=== PATIENT | male | born 1975 | race American Indian/Alaskan Native ===

== ENCOUNTER 2016-11-06 17:54 | Emergency (ER) | payer SELFPAY ==
--- NOTE | 2016-11-07 00:35 | Emergency Department Report ---
HPI - General Chief Complaint: Extremity Injury, Upper Time Seen by Provider: 11/06/16 23:50 - HPI HPI: 41-year-old male presents today with right middle finger pain since 20 minutes prior to arrival. Patient states that his finger got rolled up in a car window. He describes his pain as 8 out of 10 constant, throbbing pain. Positive for aches had on the fat pad. Denies numbness, weakness, paresthesias. Denies fever, chills, nausea, vomiting, chest pain, shortness of breath, abdominal pain. ED Past Medical Hx - Past Medical History Previous Medical History?: No - Surgical History Past Surgical History?: No - Social History Smoking Status: Never Smoker Substance Use Type: Non Opiate Pain - Medications Home Medications: Home Medications Medication Instructions Recorded Confirmed Last Taken Type HYDROcodone/APAP 7.5-325 [[place] 1 each PO Q8HR PRN #10 tablet 07/04/16 Unknown Rx 7.5-325 mg TAB] HYDROcodone/APAP 5-325 [[place] 1 each PO Q6HR PRN #12 tablet 07/12/16 Unknown Rx 5/325] HYDROcodone/APAP 5-325 [[place] 1 each PO Q6HR PRN #20 tablet 09/19/16 Unknown Rx 5/325] Ibuprofen [Motrin 600 MG tab] 600 mg PO Q8H PRN #20 tablet 09/19/16 Unknown Rx Naproxen [Naprosyn] 500 mg PO BID #30 tablet 11/07/16 Unknown Rx ED Review of Systems ROS: Stated complaint: FINGER LAC Other details as noted in HPI Constitutional: denies: chills, fever, malaise Eyes: denies: eye pain ENT: denies: ear pain, throat pain, congestion Respiratory: denies: cough, shortness of breath, wheezing Cardiovascular: denies: chest pain, palpitations Endocrine: no symptoms reported Gastrointestinal: denies: abdominal pain, nausea, vomiting Musculoskeletal: joint swelling, arthralgia Neurological: denies: headache, weakness, numbness, paresthesias Physical Exam - Physical Exam Vital Signs: Vital Signs 11/06/16 18:06 Temperature 99.1 F Pulse Rate 89 Respiratory 22 Rate Blood Pressure 140/95 O2 Sat by Pulse 100 Oximetry Physical Exam: GENERAL: The patient is well-developed and well-nourished. Patient is in NAD. HEAD: Normocephalic. Atraumatic. CHEST/LUNGS: Clear to auscultation throughout. HEART/CARDIOVASCULAR: Regular rate and rhythm. No murmurs, rubs or gallops. ABDOMEN: Abdomen is soft, nontender. Bowel sounds normoactive. No guarding or rebound tenderness. RIGHT HAND: A 1.5 cm superficial laceration noted above with the fat pad of the third digit; tenderness to palpation of the digit. Limited range of motion due to pain. Normal sensation. 2 point discrimination intact. Peripheral pulses intact. Capillary refill less than 2 seconds. NEURO: Alert and oriented x 3. Normal gait. ED Course Vital Signs 11/06/16 18:06 Temperature 99.1 F Pulse Rate 89 Respiratory 22 Rate Blood Pressure 140/95 O2 Sat by Pulse 100 Oximetry ED Medical Decision Making - Lab Data Vital Signs 11/06/16 18:06 Temperature 99.1 F Pulse Rate 89 Respiratory 22 Rate Blood Pressure 140/95 O2 Sat by Pulse 100 Oximetry - Radiology Data Radiology results: report reviewed Right hand x-ray: No fracture or dislocation noted. - Medical Decision Making 41-year-old male presents today with right middle finger pain and laceration post a car window rolling up on his finger. His x-ray results reveal no fracture or dislocation. Patient is in no acute distress at this time. He will be discharged home and is encouraged to follow up with a primary care provider. He will be sent home on naproxen and is encouraged to return to the emergency room for any worsening symptoms. Critical care attestation.: If time is entered above; I have spent that time in minutes in the direct care of this critically ill patient, excluding procedure time. ED Disposition Clinical Impression: Finger contusion Qualifiers: Encounter type: initial encounter Finger: middle finger Damage to nail status: without damage Laterality: right Qualified Code(s): S60.031A - Contusion of right middle finger without damage to nail, initial encounter Disposition: DISCHARGED TO HOME OR SELFCARE Is pt being admited?: No Does the pt Need Aspirin: No Condition: Stable Instructions: Arthralgia (ED), Contusion in Adults (ED) Additional Instructions: Follow-up with primary care provider. Return to the emergency department if symptoms worsen. Prescriptions: Naproxen [Naprosyn] 500 mg PO BID #30 tablet Referrals: PRIMARY CARE, [Primary Care Provider] - 3-5 Days CHAVO JALLOH MD [Staff Physician] - 3-5 Days [facility] [Outside] - 3-5 Days Forms: Work/School Release Form(ED) Time of Disposition: 00:47
--- NOTE | 2016-11-07 00:42 | XRay Report ---
FINAL REPORT EXAM: XR FINGER(S) 2 RT HISTORY: Injury to middle finger, pain TECHNIQUE: 3 views of the right third digit. PRIORS: None FINDINGS: Joint spaces are maintained. No acute fracture or dislocation. IMPRESSION: 1. No acute finding.
[2016-11-07] MEDS ORDERED: TORADOL IM ONE (00:52)
[2016-11-07 01:11] VITALS: BP 122/74
== END 2016-11-07 01:19 | disposition home or self-care (01) ==
LOC: ED 17:54
DX: S60.031A Contusion of right middle finger without damage to nail, initial encounter (principal); W23.0XXA Caught, crushed, jammed, or pinched between moving objects, initial encounter; Y93.89 Activity, other specified; Y92.89 Other specified places as the place of occurrence of the external cause; Y99.8 Other external cause status
CPT/HCPCS: 73140; 96372; 99283; J1885

== ENCOUNTER 2021-05-19 16:26 | Emergency (ER) | payer SELFPAY ==
[2021-05-19 17:27] VITALS: BP 129/70
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
--- NOTE | 2021-05-19 18:38 | Vascular Lab Report ---
DUPLEX DOPPLER LOWER EXTREMITY VEINS, BILATERAL INDICATION / CLINICAL INFORMATION: bilateral lower extremity swelling, L > R. TECHNIQUE: Duplex doppler imaging was performed through the veins of both lower extremities using venous matt shashi and other maneuvers. COMPARISON: None available. FINDINGS: Right Common Femoral vein: Negative. Right Femoral vein: Negative. Right Popliteal vein: Negative. Right Calf veins: Negative. Left Common Femoral vein: Negative. Left Femoral vein: Negative. Left Popliteal vein: Negative. Left Calf veins: Negative. Additional findings: None. IMPRESSION: 1. No sonographic evidence for DVT in either lower extremity. Signer Name: Watson Talavera MD Signed: 05/19/2021 6:33 PM Workstation Name: [id number]
--- NOTE | 2021-05-20 12:34 | Electrocardiograph Report ---
[facility] Test Date: 2021-05-19 Test Time: 17:30:20 Pat Name: VENKATA DOLAN Department: Room: Gender: M Senior Ui Designer: : 1975 Requested By: RAMÍREZ MADDOX Order Number: [id number] Reading MD: Emiliano Barrientos Measurements Intervals [place] Rate: 90 P: 78 MS: 156 QRS: 11 QRSD: 98 T: 38 QT: 420 QTc: 514 Interpretive Statements Sinus rhythm Probable left atrial enlargement Prolonged QT interval No previous ECG available for comparison Electronically Signed On 05-20-2021 12:33:34 EDT by Emiliano Barrientos
== END 2021-05-20 03:32 | disposition left against medical advice (07) ==
LOC: ED 16:26
DX: R07.89 Other chest pain (principal); Z53.21 Procedure and treatment not carried out due to patient leaving prior to being seen by health care provider
CPT/HCPCS: 71046; 93005; 93970

== ENCOUNTER 2021-11-02 14:18 | Emergency (ER) | payer SELFPAY | END 2021-11-02 18:30 | disposition left against medical advice (07) | LOC: ED 14:18 | DX: Z00.8 Encounter for other general examination (principal); Z53.21 Procedure and treatment not carried out due to patient leaving prior to being seen by health care provider ==

== ENCOUNTER 2021-11-04 16:58 | Emergency (ER) | payer SELFPAY ==
--- NOTE | 2021-11-04 18:25 | Event Note ---
Date of service: 11/04/21 Face to Face: For this encounter I have reviewed the PA/MATERIAL INSPECTOR documentation, treatment plan, medical decision making, and I had face to face time with this patient. Patient presented with lower back pain after a fall. He states that he slipped on wet floor and landed on his tailbone. He did not hit his head. He did not have any loss of consciousness. On exam, he has no abdominal tenderness. There is normal anesthesia to the arms and legs. He does not have any evidence of numbness. He does not have rib tenderness. Plain films will be obtained and he should be able to be discharged.
--- NOTE | 2021-11-04 18:32 | Emergency Department Report ---
ED Fall HPI - General Chief Complaint: Fall Stated Complaint: FALL Time Seen by Provider: 11/04/21 18:06 Source: patient Mode of arrival: Ambulatory - History of Present Illness Initial Comments: Patient is a 46-year-old male presents emergency room with complaints of a slip and fall that occurred 2 days ago. He is complaining of neck pain, back pain, coccyx pain. He denies any loss of consciousness, vomiting, vision changes, numbness, weakness, bowel or bladder incontinence, saddle numbness. He denies any allergies to medications. He states that he does not need any pain medication as he reports he already has some at home. - Related Data Previous Rx's Medication Instructions Recorded Last Taken Type HYDROcodone/APAP 7.5-325 [[place] 1 each PO Q8HR PRN #10 tablet 07/04/16 Unknown Rx 7.5-325 mg TAB] HYDROcodone/APAP 5-325 [[place] 1 each PO Q6HR PRN #12 tablet 07/12/16 Unknown Rx 5/325] HYDROcodone/APAP 5-325 [[place] 1 each PO Q6HR PRN #20 tablet 09/19/16 Unknown Rx 5/325] Ibuprofen [Motrin 600 MG tab] 600 mg PO Q8H PRN #20 tablet 09/19/16 Unknown Rx Naproxen [Naprosyn] 500 mg PO BID #30 tablet 11/07/16 Unknown Rx Allergies Allergy/AdvReac Type Severity Reaction Status Date / Time No Known Allergies Allergy Verified 11/04/21 17:49 ED Review of Systems ROS: Stated complaint: FALL Other details as noted in HPI Comment: All other systems reviewed and negative ED Past Medical Hx - Past Medical History Previous Medical History?: No - Surgical History Past Surgical History?: No - Social History Smoking Status: Never Smoker Substance Use Type: Non Opiate Pain - Medications Home Medications: Home Medications Medication Instructions Recorded Confirmed Last Taken Type HYDROcodone/APAP 7.5-325 [[place] 1 each PO Q8HR PRN #10 tablet 07/04/16 Unknown Rx 7.5-325 mg TAB] HYDROcodone/APAP 5-325 [[place] 1 each PO Q6HR PRN #12 tablet 07/12/16 Unknown Rx 5/325] HYDROcodone/APAP 5-325 [[place] 1 each PO Q6HR PRN #20 tablet 09/19/16 Unknown Rx 5/325] Ibuprofen [Motrin 600 MG tab] 600 mg PO Q8H PRN #20 tablet 09/19/16 Unknown Rx Naproxen [Naprosyn] 500 mg PO BID #30 tablet 11/07/16 Unknown Rx ED Physical Exam - General Limitations: No Limitations General appearance: alert, in no apparent distress - Head Head exam: Present: atraumatic, normocephalic - Eye Eye exam: Present: normal appearance - ENT ENT exam: Present: mucous membranes moist - Neck Neck exam: Present: normal inspection, tenderness (bilateral c-spine and mild midline c-spine ttp, no step offs, no deformities), full ROM. Absent: meningismus - Respiratory Respiratory exam: Present: normal lung sounds bilaterally. Absent: respiratory distress, wheezes, rales, rhonchi, stridor, chest wall tenderness, accessory muscle use, decreased breath sounds, prolonged expiratory - Cardiovascular Cardiovascular Exam: Present: regular rate, normal rhythm, normal heart sounds. Absent: systolic murmur, diastolic murmur, rubs, gallop - Back Exam Back exam: Present: normal inspection, full ROM, paraspinal tenderness (bilateral t-spine and l spine paraspinal), vertebral tenderness (mild midline c-spine, t-spine and l-spine, no step offs, no deformities, no edema, no ecchymosis) - Neurological Exam Neurological exam: Present: alert, oriented X3, CN II-XII intact, normal gait. Absent: motor sensory deficit - Psychiatric Psychiatric exam: Present: normal affect, normal mood - Skin Skin exam: Present: warm, dry, intact ED Course Vital Signs 11/04/21 17:51 Temperature 99.1 F Pulse Rate 101 H Respiratory 20 Rate Blood Pressure 125/86 O2 Sat by Pulse 96 Oximetry ED Medical Decision Making - Radiology Data Radiology results: report reviewed Ordering Physician: OZIEL HINDS Date of Service: 11/04/21 Procedure(s): XR spine thoracic 3V Accession Number(s): [id number] cc: OZIEL HINDS Fluoro Time In Minutes: XR spine thoracic 3V INDICATION / CLINICAL INFORMATION: slip and fall, pain from the neck to the coccyx. COMPARISON: None available. FINDINGS: BONES/JOINT(S): No acute fracture or subluxation. No significant degenerative changes. SOFT TISSUES: No significant abnormality. ADDITIONAL FINDINGS: None. Signer Name: Keith Lozada MD Signed: 11/04/2021 7:32 PM Workstation Name: [id number] Transcribed By: GIACOMO Dictated By: Keith Lozada MD Electronically Authenticated By: Keith Lozada MD Signed Date/Time: 11/04/211931 DD/ 31 TD/TT: Ordering Physician: OZIEL HINDS Date of Service: 11/04/21 Procedure(s): XR spine cervical 2-3V Accession Number(s): [id number] cc: OZIEL HINDS Fluoro Time In Minutes: XR spine cervical 2-3V INDICATION / CLINICAL INFORMATION: slip and fall, pain from the neck to the coccyx. COMPARISON: None available. FINDINGS: BONES/JOINT(S): No acute fracture or subluxation. Mild degenerative disc disease at C5-6 and C6-7 SOFT TISSUES: No significant abnormality. ADDITIONAL FINDINGS: None. Signer Name: Keith Lozada MD Signed: 11/04/2021 7:32 PM Workstation Name: [id number] Transcribed By: GIACOMO Dictated By: Keith Lozada MD Electronically Authenticated By: Keith Lozada MD Signed Date/Time: 11/04/211931 DD/ 31 TD/TT: Ordering Physician: OZIEL HINDS Date of Service: 11/04/21 Procedure(s): XR spine lumbosacral 2-3V Accession Number(s): [id number] cc: OZIEL HINDS Fluoro Time In Minutes: XR spine lumbosacral 2-3V INDICATION / CLINICAL INFORMATION: slip and fall, pain from the neck to the coccyx. COMPARISON: None available. FINDINGS: BONES/JOINT(S): No acute fracture or subluxation. No significant degenerative changes. SOFT TISSUES: No significant abnormality. ADDITIONAL FINDINGS: None. Signer Name: Keith Lozada MD Signed: 11/04/2021 7:32 PM Workstation Name: [id number] Transcribed By: GIACOMO Dictated By: Keith Lozada MD Electronically Authenticated By: Keith Lozada MD Signed Date/Time: 11/04/211931 DD/ 31 TD/TT: Ordering Physician: OZIEL HINDS Date of Service: 11/04/21 Procedure(s): XR spine sacrum/coccyx 2+V Accession Number(s): [id number] cc: OZIEL HINDS Fluoro Time In Minutes: XR spine sacrum/coccyx 2+V INDICATION / CLINICAL INFORMATION: slip and fall, pain from the neck to the coccyx. COMPARISON: None available. FINDINGS: BONES/JOINT(S): No acute fracture or subluxation. No significant degenerative changes. SOFT TISSUES: No significant abnormality. ADDITIONAL FINDINGS: None. Signer Name: Keith Lozada MD Signed: 11/04/2021 7:32 PM Workstation Name: [id number] Transcribed By: GIACOMO Dictated By: Keith Lozada MD Electronically Authenticated By: Keith Lozada MD Signed Date/Time: 11/04/211931 DD/ 30 TD/TT: - Medical Decision Making Patient is a 46-year-old male presents emergency room with complaints of a slip and fall that occurred 2 days ago. He is complaining of neck pain, back pain, c occyx pain. He denies any loss of consciousness, vomiting, vision changes, numbness, weakness, bowel or bladder incontinence, saddle numbness. He denies any allergies to medications. He states that he does not need any pain medication as he reports he already has some at home. Vitals are stable. On exam bilateral paraspinal and mild midline spinal C-spine, T-spine, L-spine tenderness palpation, no step-offs, no deformities, no edema, no ecchymosis, no focal neuro deficits, ambulatory without difficulty. X-rays without evidence of acute fracture or dislocation. Discussed all findings with patient. Advised patient Follow-up with your primary care doctor. Follow-up with orthopedic doctor if symptoms are not improving. May use ice pack, heating pad, rest, epsom salt bath. Return to emergency room for any new or worsening symptoms. Critical care attestation.: If time is entered above; I have spent that time in minutes in the direct care of this critically ill patient, excluding procedure time. ED Disposition Clinical Impression: Neck pain, Coccyx pain Back pain Qualifiers: Back pain location: low back pain Chronicity: acute Back pain laterality: bilateral Sciatica presence: without sciatica Qualified Code(s): M54.50 - Low back pain, unspecified Fall Qualifiers: Encounter type: initial encounter Qualified Code(s): W19.XXXA - Unspecified fall, initial encounter Disposition: HOME / SELF CARE / HOMELESS Is pt being admited?: No Does the pt Need Aspirin: No Condition: Stable Instructions: Muscle Strain, [id number] Additional Instructions: Follow-up with your primary care doctor. Follow-up with orthopedic doctor if symptoms are not improving. May use ice pack, heating pad, rest, epsom salt bath. Return to emergency room for any new or worsening symptoms. Referrals: FER HANSON MD [Staff Physician] - 3-5 Days [facility] [Provider Group] - 3-5 Days [facility] [Provider Group] - 3-5 Days Time of Disposition: 19:54 Print Language: ZIMBABWEAN
--- NOTE | 2021-11-04 19:36 | XRay Report ---
XR spine cervical 2-3V INDICATION / CLINICAL INFORMATION: slip and fall, pain from the neck to the coccyx. COMPARISON: None available. FINDINGS: BONES/JOINT(S): No acute fracture or subluxation. Mild degenerative disc disease at C5-6 and C6-7 SOFT TISSUES: No significant abnormality. ADDITIONAL FINDINGS: None. Signer Name: Keith Lozada MD Signed: 11/04/2021 7:32 PM Workstation Name: [id number]
--- NOTE | 2021-11-04 19:36 | XRay Report ---
XR spine sacrum/coccyx 2+V INDICATION / CLINICAL INFORMATION: slip and fall, pain from the neck to the coccyx. COMPARISON: None available. FINDINGS: BONES/JOINT(S): No acute fracture or subluxation. No significant degenerative changes. SOFT TISSUES: No significant abnormality. ADDITIONAL FINDINGS: None. Signer Name: Keith Lozada MD Signed: 11/04/2021 7:32 PM Workstation Name: [id number]
--- NOTE | 2021-11-04 19:36 | XRay Report ---
XR spine lumbosacral 2-3V INDICATION / CLINICAL INFORMATION: slip and fall, pain from the neck to the coccyx. COMPARISON: None available. FINDINGS: BONES/JOINT(S): No acute fracture or subluxation. No significant degenerative changes. SOFT TISSUES: No significant abnormality. ADDITIONAL FINDINGS: None. Signer Name: Keith Lozada MD Signed: 11/04/2021 7:32 PM Workstation Name: [id number]
--- NOTE | 2021-11-04 19:37 | XRay Report ---
XR spine thoracic 3V INDICATION / CLINICAL INFORMATION: slip and fall, pain from the neck to the coccyx. COMPARISON: None available. FINDINGS: BONES/JOINT(S): No acute fracture or subluxation. No significant degenerative changes. SOFT TISSUES: No significant abnormality. ADDITIONAL FINDINGS: None. Signer Name: Keith Lozada MD Signed: 11/04/2021 7:32 PM Workstation Name: [id number]
[2021-11-04 20:41] VITALS: BP 112/72
== END 2021-11-04 20:36 | disposition home or self-care (01) ==
LOC: ED 16:58
DX: M54.2 Cervicalgia (principal); M54.50 Low back pain, unspecified; W18.30XA Fall on same level, unspecified, initial encounter; Y93.89 Activity, other specified; Y92.89 Other specified places as the place of occurrence of the external cause; Y99.8 Other external cause status
CPT/HCPCS: 72040; 72072; 72100; 72220; 99283